=== PATIENT | male | born 1955 | race Caucasian/White ===

== ENCOUNTER 2025-02-28 09:34 | Emergency (ER) | payer MEDICARE, OTHER, SELFPAY ==
[2025-02-28 09:50] VITALS: BP 139/87
--- NOTE | 2025-02-28 11:18 | ED.GENMED ---
History of Present Illness
General
Chief Complaint: Musculo-Skeletal Complaint
Source: patient and significant other
Exam Limitations: none
Time Seen by Provider: 02/28/25 10:19
Nursing documentation reviewed up to this point in time: agreed with
History of Present Illness
History of Present Illness:
se MDM
Phy Exam
Physical Exam
Physical Exam:
GENERAL: Alert , in no apparent distress, comfortable at rest
HEAD: NCAT
CV: 2+ DP PULSES B/L
NEUROLOGICAL: Alert and oriented, no focal neuro deficits, , 5/5 strength, sensation intact, ambulation slight limp right leg
SKIN: Warm and dry, very mild erythema to the medial left ankle, moderate swelling of the ankle diffusely, mild tenderness, painful range of motion, able to plantar and dorsiflex approximately 15 degrees
MUSCULOSKELETAL: Left ankle mildly swollen, warm, very faint erythema medially, no streaking up his leg, calf is soft, no swelling to the calf, foot is also normal with a normal pulse, nontender
PSYCH: Normal and appropriate interaction.
Course
Orders/Labs/Results
Orders:
Orders
02/28/25 09:53
Ankle, left 3 view CR [CR Ankle - Left Min 3 Views ] Urgent
Comment:
Reason For Exam: pain
02/28/25 11:33
Oxycodone/Acetaminophen [Percocet 5/325] 1 tablet PO NOW STA
Vital Signs
Initial and Last Documented VS:
Initial Vital Signs
Temp Pulse Resp BP Pulse Ox
36.9 C 61 18 139/87 96
02/28/25 09:50 02/28/25 09:50 02/28/25 09:50 02/28/25 09:50 02/28/25 09:50
Last Documented Vital Signs
Temp Pulse Resp BP Pulse Ox
36.9 C 61 18 139/87 96
02/28/25 09:50 02/28/25 09:50 02/28/25 09:50 02/28/25 09:50 02/28/25 11:23
MDM/Problems Addressed
Differential Diagnosis Includes:
see MDM
MDM/Problems Addressed:
Note:
CHIEF COMPLAINT(S)
Severe ankle pain.
HISTORY OF PRESENT ILLNESS
The patient, a 69-year-old male with a history of gout, presented with severe pain in the left ankle. The patient reported the onset of pain began l6 days ago while in the tub and noted it progressively worsened to the point of being unable to bear
weight on it. He described the pain as more intense compared to past experiences of gout in his toe, but denied having a fever. There was no history of trauma or injury to the ankle. Previous episodes were managed with Colchicine, and he recently
resumed taking it yesterday. 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 Ankle X-ray was normal, and the joint was red and warm to the touch, consistent with an inflammatory process.
PAST MEDICAL AND SURIGICAL HISTORY
History of arteriovenous fistula, diagnosed six years ago.
CHRONIC MEDICAL CONDITIONS SIGNIFICANTLY AFFECTING CARE
Arteriovenous fistula.
PLAN
Continue Colchicine for gout management as previously prescribed (twice a day for five days). Prescribe additional pain management medication (oxycodone) for relief during this gout attack. Ensure the patient uses crutches to minimize weight-bearing
on the affected ankle and prevent further delay in recovery. Advise the patient to observe for worsening symptoms, such as increased redness, swelling, or fever, and seek medical attention if they occur.
DIFFERENTIAL DIAGNOSIS
The Differential Diagnosis includes, in no particular order and is not limited to:
1. Gout flare
2. Septic arthritis
3. Pseudogout
4. Reactive arthritis
5. Trauma or fracture
6. Cellulitis
7. Deep vein thrombosis
8. Osteoarthritis
9. Rheumatoid arthritis
10. Bursitis
\\
69-year-old gentleman with a history of gout previously in his foot treated with colchicine usually
Presents with atraumatic left ankle pain and swelling with warmth and slight redness increasing over the last several days. Patient says he has been very active and today really had trouble weightbearing because of the pain. He can put his heel
down but toe touching is painful. He has not had any fevers or chills. Patient refilled his colchicine yesterday and started it. Is not really helping with the pain.
He has never had steroids for gout before. Patient said he has never had any arthrocentesis but has had presumed gout which is successfully treated with colchicine in the past
On exam the patient has a mild to moderate swelling of his left ankle with some medial redness and warmth, painful limited range of motion but is able to dorsi and plantarflex with discomfort, no fever to suggest a septic joint, no risk factors for
septic arthritis.
X-ray independently reviewed by me, negative
This is very classic presentation for gout. He just recently started his colchicine and I would not consider this a failure. He did ask about prednisone but would prefer to stick with the colchicine since it worked for him in the past. Will add
pain control with oxycodone, additionally Tylenol 3 times a day. Set of crutches to help with partial weightbearing
*Pulse Oximetry
SaO2: 96
Oxygen Mode of Delivery: Room air
Patient hypoxic: no (96)
*Critical Care Note
Total Time (30-74mins, 75-104mins- exclusive of procedures): Not Applicable
ED Attending Note
-
Portions of this chart may have been created with voice recognition software.� Occasional wrong word or��sound alike� substitutions may have occurred due to the inherent limitations of voice recognition software.
Discharge Plan
Departure
Patient Disposition: Home (Routine Discharge)
Date of Disposition: 02/28/25
Time of Disposition: 11:21
Patient with high blood pressure during this ER visit?: Yes
Condition: Fair
Covid-19: Not Applicable
Discharge Problem:
Gout attack
Instructions: Gout - ED (DC), BLOOD PRESSURE
Prescriptions:
New
oxycodone 5 mg tablet
5 mg PO Q8H PRN (Reason: Pain) Qty: 10 0RF
Activity Restrictions/Additional Instructions:
Your ankle pain is likely due to a gout flare. Take the colchicine as prescribed for at least 5 to 7 days with food. You should also consider Tylenol 3 times a day for pain. If the pain is severe you could use oxycodone 5 mg 3 times a day as
needed, while on oxycodone you should take a stool softener to prevent constipation.
Use the crutches to help with partial weightbearing as tolerated. Watch for worsening redness, warmth, fevers or chills, etc. and return to the ER as needed. Otherwise follow-up with your primary or orthopedics
Interventions
Interventions:
*Risk Screen - Suicide Last Done: 02/28/25 09:53
*General Assessment Last Done: 02/28/25 09:50
*Neglect/Abuse Screening Last Done: 02/28/25 10:43
*ED- Fall Risk Assessment Last Done: 02/28/25 10:43
*ED COVID-19 Vaccine History Last Done: 02/28/25 10:43
*ED Influenza Vaccine History Last Done: 02/28/25 10:43
*Nursing Disposition Last Done: 02/28/25 11:46
ED-Musculoskeletal Assessment Last Done: 02/28/25 10:43
Discharge Date and Time
Discharge Date/Time: 02/28/25 11:47
Print Language: BAHAMIAN
[2025-02-28] MEDS: PERCOCET 5/325 1 TABLET PO (11:38)
== END 2025-02-28 11:47 | disposition home or self-care (01) ==
LOC: EMR 09:34
PROVIDERS: EMERGENCY PHYSICIAN Emergency Medicine; FAMILY PHYSICIAN Specialist
DX: M10.9 Gout, unspecified (principal); I77.0 Arteriovenous fistula, acquired
CPT/HCPCS: 99283; 73610